=== PATIENT | female | born 1935 | race Caucasian/White ===

== ENCOUNTER → 2016-03-17 | Outpatient (REF) | payer MEDICARE ==
[2016-03-17 11:45] LABS: BASO % 0.5 % (0.0-1.0); EOS # 0.4 K/mm3 (0.0-0.50); EOS % 4.6 % (0.0-3.0); LARGE UNSTAINED CELL # 0.3 K/mm3 (0.0-0.4); LARGE UNSTAINED CELL % 3.2 % (0.0-4.0); LYMPH # 1.9 K/mm3 (1.5-4.5); MEAN CORPUSCULAR HEMOGLOBIN 31.8 pg (27.0-33.0); MEAN CORPUSCULAR HGB CONC 32.5 g/dl (32.0-36.5); MEAN CORPUSCULAR VOLUME 97.8 fl (80.0-96.0); MONO # 0.5 K/mm3 (0.0-0.8); MONO % 6.4 % (0.0-5.0); NEUTROPHILS # 4.7 K/mm3 (1.8-7.7); NEUTROPHILS % 61.3 % (36.0-66.0); PLATELET COUNT, AUTOMATED 222 k/mm3 (150-450); RED CELL DISTRIBUTION WIDTH 12.7 % (11.5-14.5); WHITE BLOOD COUNT 7.7 K/mm3 (4.0-10.0)
[2016-03-17 12:15] LABS: CALCIUM LEVEL 8.8 MG/DL (8.8-10.2); CREATININE FOR GFR 2.73 MG/DL (0.55-1.02); FREE T4 0.89 NG/DL (0.76-1.46); GLOMERULAR FILTRATION RATE 17.8 (>32)
== END ==
LOC: M SFHCPLAZ 09:05
PROVIDERS: ATTEND Physician Assistant Medical
DX: N18.4 Chronic kidney disease, stage 4 (severe) (principal); Z79.899 Other long term (current) drug therapy

== ENCOUNTER → 2016-06-21 | Outpatient (CLI) | payer MEDICARE ==
--- NOTE | 2016-06-21 13:40 | REP ---
Right foot series: Four views. History: Right foot pain. Comparison radiographs are from July 09, 2015. Findings: Four views of the right foot show plantar and Achilles calcaneal spurring. Vascular calcification is noted. There is mild midfoot osteoarthritic spurring. There is no acute bony erosive change or soft tissue gas. No fracture is seen. Impression: Midfoot osteoarthritis. Heel spurring. Vascular calcification. No acute bony abnormality. Signed by Rolo Oglesby MD 06/21/2016 04:33 P
== END ==
LOC: M LRY 12:52
PROVIDERS: ATTEND Nurse Practitioner Family
DX: M19.071 Primary osteoarthritis, right ankle and foot (principal); M77.31 Calcaneal spur, right foot

== ENCOUNTER → 2016-06-28 | Outpatient (REF) | payer MEDICARE ==
[2016-06-28 13:17] LABS: BASO % 0.3 % (0.0-1.0); EOS # 0.2 K/mm3 (0.0-0.50); EOS % 2.1 % (0.0-3.0); LARGE UNSTAINED CELL # 0.2 K/mm3 (0.0-0.4); LARGE UNSTAINED CELL % 1.4 % (0.0-4.0); LYMPH # 2.1 K/mm3 (1.5-4.5); LYMPH % 18.6 % (24.0-44.0); MEAN CORPUSCULAR HGB CONC 32.5 g/dl (32.0-36.5); MEAN CORPUSCULAR VOLUME 98.4 fl (80.0-96.0); MONO # 0.5 K/mm3 (0.0-0.8); MONO % 4.9 % (0.0-5.0); NEUTROPHILS # 7.6 K/mm3 (1.8-7.7); NEUTROPHILS % 72.7 % (36.0-66.0); PLATELET COUNT, AUTOMATED 319 k/mm3 (150-450); RED CELL DISTRIBUTION WIDTH 12.6 % (11.5-14.5); WHITE BLOOD COUNT 10.5 K/mm3 (4.0-10.0)
[2016-06-28 13:18] LABS: ALBUMIN 3.3 GM/DL (3.2-5.2); ALBUMIN/GLOBULIN RATIO 0.85 (1.00-1.93); BILIRUBIN,TOTAL 0.3 MG/DL (0.2-1.0); CALCIUM LEVEL 8.5 MG/DL (8.8-10.2); CREATININE FOR GFR 2.75 MG/DL (0.55-1.02); FREE T4 0.97 NG/DL (0.76-1.46); GLOMERULAR FILTRATION RATE 17.7 (>32); POTASSIUM SERUM 5.1 MEQ/L (3.5-5.1); TOTAL PROTEIN 7.2 GM/DL (6.4-8.2)
== END ==
LOC: M SFHCPLAZ 09:10
PROVIDERS: ATTEND Physician Assistant Medical
DX: E11.22 Type 2 diabetes mellitus with diabetic chronic kidney disease (principal); E78.2 Mixed hyperlipidemia; I12.9 Hypertensive chronic kidney disease with stage 1 through stage 4 chronic kidney disease, or unspecified chronic kidney disease; N18.4 Chronic kidney disease, stage 4 (severe); M85.80 Other specified disorders of bone density and structure, unspecified site; E53.8 Deficiency of other specified B group vitamins

== ENCOUNTER → 2016-08-01 | Outpatient (CLI) | payer MEDICARE ==
--- NOTE | 2016-08-01 16:19 | REPMRS ---
Patient History The patient states she has not had a clinical breast exam in over a year. Patient is postmenopausal. No known family history of cancer. Digital Woman Screen Mammo: August 01, 2016 - Exam #: [id number] Bilateral CC and MLO view(s) were taken. Technologist: Yarelis Dennis, Technologist FINDINGS: There are scattered fibroglandular densities. There is no evidence of cancer on this mammogram. Large coarse benign appearing calcifications are present. ASSESSMENT: BI-RADS/ACR category 2 mammogram. Benign finding(s). Recommendation Routine screening mammogram of both breasts in 1 year (for women over age 40). This mammogram was interpreted with the aid of an FDA-approved computer-aided dectection system. Electronically Signed By: Bob Leos MD 08/01/16 [id number]
--- NOTE | 2016-08-08 15:15 | DEXA ---
AP SPINE L1 - L4 1.113 -0.7 1.2 LT FEMUR TOTAL 0.738 -2.1 -0.1 RT FEMUR TOTAL 0.874 -1.1 1.0 TOTAL BODY TOTAL OTHER DUAL FEMUR FRAX* ASSESSMENT Risk factors: None. 10 year probability of fracture Major osteoporotic fracture 12.9 % Hip fracture 3.3 % COMMENTS: Normal bone densitometry of the spine. There is low bone density of the hips. FOLLOW-UP: Recommendation for the next bone density exam: 2 years. TIFFANIE
== END ==
LOC: M WHC 14:50
PROVIDERS: ATTEND Physician Assistant Medical
DX: Z12.31 Encounter for screening mammogram for malignant neoplasm of breast (principal); M85.80 Other specified disorders of bone density and structure, unspecified site; M81.0 Age-related osteoporosis without current pathological fracture
CPT/HCPCS: 77080; G0202

== ENCOUNTER → 2017-05-10 | Outpatient (REF) | payer MEDICARE | LOC: M SFHCLERA 17:05 | DX: J40 Bronchitis, not specified as acute or chronic (principal) ==

== ENCOUNTER → 2017-05-15 | Outpatient (REF) | payer MEDICARE ==
[2017-05-15 19:41] LABS: BASO % 0.3 % (0.0-1.0); EOS # 0.1 10^3/uL (0.0-0.50); EOS % 1.4 % (0.0-3.0); HEMATOCRIT 35.2 % (36.0-47.0); HEMOGLOBIN 10.9 g/dl (12.0-15.5); IMMATURE GRANULOCYTE % 0.3 % (0-3.0); LYMPH # 1.8 10^3/uL (1.5-4.5); LYMPH % 26.8 % (24.0-44.0); MEAN CORPUSCULAR HEMOGLOBIN 29.5 pg (27.0-33.0); MEAN CORPUSCULAR VOLUME 95.1 fl (80.0-96.0); MONO # 0.8 10^3/uL (0.0-0.8); MONO % 11.4 % (0.0-5.0); NEUTROPHILS % 59.8 % (36.0-66.0); PLATELET COUNT, AUTOMATED 204 10^3/uL (150-450); RED CELL DISTRIBUTION WIDTH 13.2 % (11.5-14.5); WHITE BLOOD COUNT 6.6 10^3/uL (4.0-10.0)
[2017-05-15 20:53] LABS: ALBUMIN 3.6 GM/DL (3.2-5.2); ALBUMIN/GLOBULIN RATIO 0.97 (1.00-1.93); ALKALINE PHOSPHATASE 115 U/L (45-117); ALT/SGPT 16 U/L (12-78); ANION GAP 9 MEQ/L (8-16); AST/SGOT 16 U/L (7-37); BILIRUBIN,TOTAL 0.3 MG/DL (0.2-1.0); BLOOD UREA NITROGEN 102 MG/DL (7-18); CARBON DIOXIDE LEVEL 15 MEQ/L (21-32); CHLORIDE LEVEL 115 MEQ/L (98-107); CREATININE FOR GFR 3.38 MG/DL (0.55-1.30); GLOMERULAR FILTRATION RATE 13.9 (>32); GLUCOSE, FASTING 192 MG/DL (70-100); SODIUM LEVEL 139 MEQ/L (136-145); TOTAL PROTEIN 7.3 GM/DL (6.4-8.2)
[2017-05-15 20:54] LABS: POTASSIUM SERUM 5.5 MEQ/L (3.5-5.1)
== END ==
LOC: M SFHCPLAZ 15:12
DX: R05 Cough (principal)
CPT/HCPCS: 80053

== ENCOUNTER → 2017-05-15 | Outpatient (CLI) | payer MEDICARE | LOC: M WUC 16:36 | DX: J98.11 Atelectasis (principal); R05 Cough | CPT/HCPCS: 71046; 80053 ==

== ENCOUNTER → 2017-07-20 | Outpatient (REF) | payer MEDICARE ==
[2017-07-20 14:01] LABS: FERRITIN 57 NG/ML (8-252); IRON (FE) 71 UG/DL (50-170); PERCENT SATURATION 24.1 % (13.2-45.0); TOTAL IRON BINDING CAPACITY 295 UG/DL (250-450)
== END ==
LOC: M LAB REF 13:19
DX: N18.9 Chronic kidney disease, unspecified (principal); D63.1 Anemia in chronic kidney disease; N25.81 Secondary hyperparathyroidism of renal origin
CPT/HCPCS: 83550

== ENCOUNTER → 2017-09-26 | Outpatient (REF) | payer MEDICARE ==
[2017-09-26 12:17] LABS: VITAMIN B12 LEVEL 619 PG/ML (247-911)
[2017-09-26 12:31] LABS: CHOLESTEROL LEVEL 107 MG/DL (<200); CHOLESTEROL RISK RATIO 3.689 (<5); HDL CHOLESTEROL 29 MG/DL (>40); LDL CHOLESTEROL 24.2 MG/DL (<100); NON-HDL-C 78 MG/DL; TRIGLYCERIDES LEVEL 269 MG/DL (<150)
[2017-09-26 14:06] LABS: ESTIMATED AVERAGE GLUCOSE 154 MG/DL (60-110)
== END ==
LOC: M SFHCPLAZ 08:21
DX: E53.8 Deficiency of other specified B group vitamins (principal); E78.2 Mixed hyperlipidemia; E11.22 Type 2 diabetes mellitus with diabetic chronic kidney disease
CPT/HCPCS: 82607

== ENCOUNTER → 2018-05-01 | Outpatient (CLI) | payer MEDICARE ==
--- NOTE | 2018-05-01 17:19 | REP ---
Out bilateral upper extremity arterial and venous Doppler ultrasound: History: End-stage renal disease. Vein mapping study. Findings: There is no evidence of deep venous thrombosis in either upper extremity. No arterial stenosis or occlusion is appreciated. Right upper extremity vein diameter chart: Upper humerus basilic 5.5 mm, cephalic 5.3 mm Lower humerus basilic 4.5 mm, cephalic 5.0 mm Upper forearm basilic 3.4 mm, cephalic 4.3 mm Wrist basilic 2.1 mm, cephalic 3.1 mm Median cubital 4.2 mm Left upper extremity vein diameter chart: Upper humerus basilic 5.3 mm cephalic 5.3 mm Lower humerus basilic 3.6 mm, cephalic 4.2 mm Upper forearm basilic 3.3 mm cephalic 2.9 mm Wrist basilic 1.9 mm cephalic 2.1 mm Median cubital 3.3 mm Right upper extremity arterial Doppler velocity and diameter chart: Axillary artery, 99 cm/S, 5.2 mm Brachial artery 99 cm/S, 4.0 mm Radial artery 57 cm/S, 2.4 mm Ulnar artery 77 cm/S, 1.9 mm Left upper extremity arterial Doppler velocity and diameter chart: Axillary artery 102 cm/S, 5.4 mm Brachial artery 168 cm/S, 3.9 mm Radial artery 73 cm/S, 2.6 mm Ulnar artery 92 cm/S, 2.0 mm Electronically Signed by Rolo Oglesby MD 05/01/2018 05:10 P
== END ==
LOC: M RAD 12:47
PROVIDERS: ATTEND Surgery Vascular Surgery
DX: Z01.818 Encounter for other preprocedural examination (principal); N18.6 End stage renal disease

== ENCOUNTER → 2018-07-02 | Outpatient (REF) | payer MEDICARE ==
[2018-07-02 19:05] LABS: PERCENT SATURATION 9.4 % (13.2-45.0)
== END ==
LOC: M LAB REF 17:37
PROVIDERS: ATTEND Internal Medicine Nephrology
DX: D64.9 Anemia, unspecified (principal); N25.81 Secondary hyperparathyroidism of renal origin

== ENCOUNTER → 2018-07-04 | Outpatient (CLI) | payer MEDICARE ==
--- NOTE | 2018-07-04 18:15 | REP ---
Clinical: Cough. Technique: PA and lateral. Comparison: 05/15/2017. Findings: Cardiomegaly is appreciated. Calcified mediastinal and hilar lymph nodes are suggested along with trace lower lobe atelectasis. Effusion. No pneumothorax. Skeletal structures intact. Impression: Stable cardiomegaly and chronic changes including calcified lymph nodes. Possible lower lobe atelectasis. Electronically Signed by Yoni Gage MD 07/04/2018 06:06 P
== END ==
LOC: M LRY 17:45
PROVIDERS: ATTEND Physician Assistant
DX: I51.7 Cardiomegaly (principal); R05 Cough

== ENCOUNTER → 2018-11-12 | Outpatient (REF) | payer MEDICARE ==
[2018-11-12 19:38] LABS: PERCENT SATURATION 19.1 % (13.2-45.0)
== END ==
LOC: M LAB REF 17:13
PROVIDERS: ATTEND Internal Medicine Nephrology
DX: N25.81 Secondary hyperparathyroidism of renal origin (principal); D63.1 Anemia in chronic kidney disease

== ENCOUNTER → 2020-09-13 | Outpatient (CLI) | payer MEDICARE ==
[2020-09-13 17:47] LABS: BASO % 0.4 % (0.0-1.0); EOS # 0.3 10^3/uL (0.0-0.5); EOS % 3.4 % (0.0-3.0); HEMATOCRIT 32.4 % (36.0-47.0); HEMOGLOBIN 10.1 g/dl (12.0-15.5); LYMPH % 22.3 % (24.0-44.0); MEAN CORPUSCULAR HEMOGLOBIN 31.9 pg (27.0-33.0); MEAN CORPUSCULAR HGB CONC 31.2 g/dl (32.0-36.5); MEAN CORPUSCULAR VOLUME 102.2 fl (80.0-96.0); MONO # 1.1 10^3/uL (0.0-0.8); NEUTROPHILS # 5.6 10^3/uL (1.5-8.5); NEUTROPHILS % 61.2 % (36.0-66.0); PLATELET COUNT, AUTOMATED 261 10^3/uL (150-450); RED BLOOD COUNT 3.17 10^6/uL (4.00-5.40); WHITE BLOOD COUNT 9.1 10^3/uL (4.0-10.0)
[2020-09-13 18:04] LABS: HEMOGLOBIN A1c 7.9 %
[2020-09-13 18:11] LABS: ALBUMIN 3.5 GM/DL (3.2-5.2); BILIRUBIN,TOTAL 0.3 MG/DL (0.2-1.0); CALCIUM LEVEL 9.4 MG/DL (8.8-10.2); CHOLESTEROL RISK RATIO 3.718 (<5); CREATININE FOR GFR 2.68 MG/DL (0.55-1.30); POTASSIUM SERUM 4.4 MEQ/L (3.5-5.1)
[2020-09-13 18:13] LABS: PTH INTACT 90.6 PG/ML (18.5-88.0); TOTAL 25(OH) VITAMIN D 32.7 NG/ML (30.0-100.0)
== END ==
LOC: M PLALAB 14:04
PROVIDERS: ATTEND Physician Assistant Medical
DX: E11.22 Type 2 diabetes mellitus with diabetic chronic kidney disease (principal); E55.9 Vitamin D deficiency, unspecified; E78.2 Mixed hyperlipidemia; I10 Essential (primary) hypertension

== ENCOUNTER → 2020-09-13 | Outpatient (REF) | payer MEDICARE | LOC: M LAB REF 18:53 | PROVIDERS: ATTEND Internal Medicine Nephrology | DX: E83.42 Hypomagnesemia (principal) ==

== ENCOUNTER → 2021-09-12 | Outpatient (REF) | payer MEDICARE ==
[2021-09-12 14:30] LABS: ALBUMIN 3.5 GM/DL (3.2-5.2); BILIRUBIN,TOTAL 0.4 MG/DL (0.2-1.0); CALCIUM LEVEL 9.9 MG/DL (8.8-10.2); CHOLESTEROL RISK RATIO 4.4 (<5); CREATININE FOR GFR 3.16 MG/DL (0.55-1.30); GLOMERULAR FILTRATION RATE 14.8 (>32); POTASSIUM SERUM 3.8 MEQ/L (3.5-5.1)
[2021-09-12 15:26] LABS: TOTAL 25(OH) VITAMIN D 32.2 NG/ML (30.0-100.0)
[2021-09-12 15:27] LABS: PTH INTACT 60.7 PG/ML (18.5-88.0)
== END ==
LOC: M SFHCPLAZ 13:15
PROVIDERS: ATTEND Physician Assistant Medical
DX: N18.4 Chronic kidney disease, stage 4 (severe) (principal); E55.9 Vitamin D deficiency, unspecified; E78.2 Mixed hyperlipidemia; E53.8 Deficiency of other specified B group vitamins; E11.22 Type 2 diabetes mellitus with diabetic chronic kidney disease

== ENCOUNTER → 2022-01-11 | Outpatient (CLI) | payer MEDICARE ==
[2022-01-11 22:56] LABS: HEMOGLOBIN A1c 6.2 % (4.0-6.0)
== END ==
LOC: M PLALAB 12:13
PROVIDERS: ATTEND Physician Assistant Medical
DX: E11.22 Type 2 diabetes mellitus with diabetic chronic kidney disease (principal)

== ENCOUNTER → 2022-01-19 | Outpatient (REF) | payer MEDICARE ==
[2022-01-19 18:35] LABS: PERCENT SATURATION 15.1 % (13.2-45.0)
== END ==
LOC: M LAB REF 16:43
PROVIDERS: ATTEND Internal Medicine Nephrology
DX: D50.9 Iron deficiency anemia, unspecified (principal)